=== PATIENT | male | born 1990 | race Caucasian/White ===

== ENCOUNTER 2017-03-01 12:12 | Emergency (ER) | payer SELFPAY | END 2017-03-01 14:35 | disposition home or self-care (01) | LOC: D.ER 12:12 | DX: K13.0 Diseases of lips (principal); B20 Human immunodeficiency virus [HIV] disease ==

== ENCOUNTER 2020-07-25 19:13 | Emergency (ER) | payer SELFPAY ==
[~2020-07-25] VITALS: Ht 162.6 cm; Wt 69.9 kg
[2020-07-25 19:21] VITALS: BP 129/85; Ht 162.6 cm; Wt 69.9 kg
[2020-07-25] MEDS ORDERED: HIV MEDS (19:21)
[2020-07-25] MEDS ORDERED: DICLOFENAC SODI50 MG PO (19:41)
[2020-07-25] MEDS ORDERED: CLEOCIN HCL300 MG PO (19:41)
== END 2020-07-25 20:27 | disposition home or self-care (01) ==
LOC: D.ER 19:13
DX: S61.412A Laceration without foreign body of left hand, initial encounter (principal); S61.432A Puncture wound without foreign body of left hand, initial encounter; W26.0XXA Contact with knife, initial encounter; Y93.9 Activity, unspecified; Y92.9 Unspecified place or not applicable